=== PATIENT | female | born 1970 | race Caucasian/White ===

== ENCOUNTER 2021-02-19 16:42 | Emergency (ER) | payer OTHER ==
[~2021-02-19] VITALS: Ht 177.8 cm; Wt 85.4 kg
[2021-02-19] MEDS ORDERED: ALBUTEROL INHALER (17:22)
--- NOTE | 2021-02-19 17:23 | NUR ---
ASSUMED CARE OF PATIENT. PATIENT REPORTS SOB. HX OF COPD. PULSE OX ON 97% RA. JOB FOREMAN ON NSR NOTED. PT ALSO REPORTS A LUMP ON THE LEFT SIDED OF HER NECK WITH SOME SWELLING. NO AIRWAY COMPROMISE. PT HAS BEEN SEEN BY DR ALEX. CALL LIGHT IN PLACE. WILL CONTINUE TO MONITOR.
[2021-02-19] MEDS ORDERED: ALBUTEROL/IPRATROPIUM 2.5MG/0.5MG, 3 ML ONE (17:25)
[2021-02-19] MEDS ORDERED: ALBUTEROL/IPRATROPIUM 2.5MG/0.5MG, 3 ML NEB ONE (17:30)
[2021-02-19 17:38] LABS: BASOPHILS % (AUTO) 1 % (0-1); EOSINOPHILS % (AUTO) 4 % (1-7); LYMPHOCYTES % (AUTO) 32 % (22-44); MD NO; MEAN CORPUSCULAR HEMOGLOBIN 30.5 pg (27.0-34.8); MEAN CORPUSCULAR HGB CONC 33.6 g/dL (32.4-35.8); MEAN PLATELET VOLUME 8.3 fL (7.4-10.4); MONOCYTES % (AUTO) 6 % (2-9); NEUTROPHILS % (AUTO) 57 % (42-75); PLATELET COUNT 351 x10^3/uL (130-400); RED BLOOD COUNT 4.33 x10^6/uL (3.82-5.3); RED CELL DISTRIBUTION WIDTH 12.8 % (9.6-15.2)
[2021-02-19 17:50] LABS: ALANINE AMINOTRANSFERASE 20 U/L (12-78); ALBUMIN 3.6 g/dL (3.4-5.0); CALCIUM 8.9 mg/dL (8.5-10.1); CHLORIDE 113 mmol/L (98-107); CREATININE 0.87 mg/dL (0.55-1.02)
[2021-02-19 17:54] LABS: ALKALINE PHOSPHATASE 83 U/L (45-117); TOTAL PROTEIN 7.1 g/dL (6.4-8.2); TROPONIN I < 0.015 ng/mL (0.000-0.045)
--- NOTE | 2021-02-19 17:57 | NUR ---
PT RESTING IN ROOM. VS STABLE. ADULT DAYCARE COORDINATOR ON. CALL LIGHT IN PLACE. WILL CONTINUE TO MONITOR.
[2021-02-19 17:58] LABS: ANION GAP 5 mmol/L (5-15)
[2021-02-19 18:12] LABS: BILIRUBIN,TOTAL < 0.1 mg/dL (0.2-1.0)
--- NOTE | 2021-02-19 18:25 | NUR ---
DR ALEX HAS UPDATED PATIENT
[2021-02-19] MEDS ORDERED: methylPREDNISolone SOD SUCC 125 MG/2 ML IVPush ONE (18:30)
[2021-02-19] MEDS ORDERED: ALBUTEROL SULFATE 2.5 MG/3 ML NPPB ONE (18:30)
[2021-02-19] MEDS ORDERED: methylPREDNISolone SOD SUCC 125 MG/2 ML ONE (18:36)
--- NOTE | 2021-02-19 18:46 | NUR ---
PT WENT TO CT
[2021-02-19] MEDS ORDERED: OMNIPAQUE 350 MG/ML, 100ML BOTTLE ONE (18:59)
[2021-02-19] MEDS ORDERED: ALBUTEROL SULFATE 2.5 MG/3 ML ONE (19:05)
[2021-02-19 19:44] VITALS: BP 134/78
--- NOTE | 2021-02-19 20:03 | NUR ---
PT HAS BEEN UPDATED BY DR ALEX. VS STABLE. NO ACUTE DISTRESS NOTED. PT DISCHARGED PER DR ALEX.
== END 2021-02-19 20:09 | disposition home or self-care (01) ==
LOC: ED 17:12
DX: J44.0 Chronic obstructive pulmonary disease with (acute) lower respiratory infection (principal); R59.1 Generalized enlarged lymph nodes; R06.02 Shortness of breath; R06.00 Dyspnea, unspecified; R42 Dizziness and giddiness; K21.9 Gastro-esophageal reflux disease without esophagitis; F17.200 Nicotine dependence, unspecified, uncomplicated
CPT/HCPCS: 36415; 70491; 71045; 80053; 84484; 85025; 93005; 94640; 96374; 99285; J2930; J7613; Q9967; 96375